=== PATIENT | male | born 1945 | race Caucasian/White ===

== ENCOUNTER 2023-08-03 06:22 | Day surgery (SDC) | payer MEDICARE, OTHER, SELFPAY ==
--- NOTE | 2023-07-19 08:12 | CM ---
Addendum entered by Herlinda Mandujano 07/27/23 10:21:
Spoke again with patient. He has not yet scheduled outpatient PT or watched the online education program; he was encouraged to do both.
Original Note:
Patient is scheduled for an elective R THR on 08/03/23- he is a same day patient. Spoke with patient prior to surgery. Introduced role of Orthopedic Navigator. Patient reports that he lives with his in a two story home. There is one step to
enter and a flight of steps to the second floor. He currently requires assist with putting on his right sock but otherwise functions independently. He has a cane, raised toilet seat with rails, grabber, long handled shoe horn and two rolling walkers
(from his 's prior orthopedic surgeries). He has never had VN services. PCP is [facility] Muse.
Discussed orthopedic program and post surgical plans. Reviewed that he will have VN services initially (medicare.gov website and ratings reviewed) and will then start outpatient PT. Patient selects [facility] (face sheet faxed to [facility] to facilitate
confirmation of benefits) for his home care needs and will go to outpatient PT near his home in [place].
Patient is in agreement with plan and states that his will be home with him.
Patient will complete online education.
Plan: Orthopedic Navigator will remain available to assist with the care of patient and will reassess discharge needs after surgery.
[2023-07-21 07:58] VITALS: BMI 39.1
[2023-07-21 09:09] LABS: Hematocrit 43.5 % (39.0-52.0); Hemoglobin 14.5 g/dL (13.0-18.0); Mean Corp Hgb Conc. 33.3 g/dL (33.0-37.0); Mean Corpuscular Hgb 30.6 pg (27.0-31.0); Mean Corpuscular Volume 91.8 fL (80.0-94.0); Mean Platelet Volume 9.9 fL (7.4-10.4); Platelet Count 199 10^3/uL (130-400); Red Blood Cell Count 4.74 10^6/uL (4.70-6.10); Red Cell Dist. Width 13.3 % (11.5-14.5); White Blood Cell Count 4.9 10^3/uL (4.8-10.8)
[2023-07-21 11:40] LABS: ALT (SGPT) 37 U/L (0-50); AST (SGOT) 40 U/L (17-59); Albumin 4.2 g/dl (3.5-5.0); Alkaline Phosphatase 59 U/L (38-126); Blood Urea Nitrogen 20 mg/dl (9-20); Carbon Dioxide 29 mmol/L (22-30); Chloride 100 mmol/L (98-107); Estimated Creatinine Clearance 109 ml/min; Glucose 95 mg/dl (70-99); Potassium 4.9 mmol/L (3.5-5.1); Sodium 141 mmol/L (135-145); Total Bilirubin 0.7 mg/dl (0.2-1.3); Total Protein 7.1 g/dl (6.3-8.2); eGFR > 60.00
[2023-07-21 14:59] VITALS: BMI 39.1
[2023-07-22 11:15] LABS: Glycohemoglobin (HgbA1c) 5.8 % (4.0-5.6)
[2023-08-03] VITALS (19 sets, daily range): BP systolic 109–142; BP diastolic 54–79; PULSE 89; O2SAT 95
--- NOTE | 2023-08-03 07:05 | W.DS.TRANS ---
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
-
Discharge Instructions:
Sleep Apnea Risk High
Discharge Diagnosis/Procedures R NEMESIO Dr. Gill 08/03/23
Diet As tolerated
Activity With Walker
Driving Restrictions No driving
Bathing Restrictions OK to Shower
Instructions:
Stand-Alone Forms: SDS Total Hip and Knee D/C
Changes to Home Medications: Yes
Discharge Medications:
DC Medications w/original date entered in [employer]
pravastatin 20 mg tablet 20 mg PO QPM 11/13/20
multivitamin 1 ea PO DAILY 11/20/20
allopurinol 100 mg tablet 100 mg PO DAILY 07/19/23
metoprolol succinate 25 mg tablet,extended release 24 hr 25 mg PO DAILY 07/19/23
cefadroxil 500 mg capsule 500 mg PO BID infection prevention #14 caps 07/21/23
dexamethasone 4 mg tablet 4 mg PO BID inflammation #6 tabs 07/21/23
famotidine 20 mg tablet 20 mg PO HS GI prophylaxis #30 tabs 07/21/23
gabapentin 300 mg capsule 300 mg PO HS sleep/pain #10 caps 07/21/23
mupirocin 2 % topical ointment 1 applic topical BID infection prevention #1 tube 07/21/23
ondansetron 4 mg disintegrating tablet 4 mg PO Q6H PRN n/v #20 tabs 07/21/23
oxycodone 5 mg tablet 5 - 10 mg PO Q6HPRN PRN 1 tab moderate-2 tabs severe pain #30 tabs 07/21/23
tamsulosin 0.4 mg capsule (Flomax) 0.4 mg PO HS #7 caps 07/21/23
Saccharomyces boulardii 250 mg capsule (Florastor) 250 mg PO BID #1 cap 08/03/23
acetaminophen 650 mg tablet,extended release 1,300 mg PO TID #0 tabs 08/03/23
apixaban 5 mg tablet (Eliquis) 2.5 mg PO BID dvt prophylaxis #0 tabs 08/03/23
docusate sodium 100 mg capsule (Colace) 100 mg PO BID stool softner #1 cap 08/03/23
magnesium hydroxide 400 mg/5 mL oral suspension (Milk of Magnesia) 30 ml PO HS PRN Constipation #1 mL 08/03/23
sennosides 8.6 mg tablet (Senokot) 17.2 mg PO BID laxative #2 tabs 08/03/23
Home Medication Changes
cefadroxil 500 mg capsule 500 mg PO BID infection prevention #14 caps 07/21/23
dexamethasone 4 mg tablet 4 mg PO BID inflammation #6 tabs 07/21/23
famotidine 20 mg tablet 20 mg PO HS GI prophylaxis #30 tabs 07/21/23
gabapentin 300 mg capsule 300 mg PO HS sleep/pain #10 caps 07/21/23
mupirocin 2 % topical ointment 1 applic topical BID infection prevention #1 tube 07/21/23
ondansetron 4 mg disintegrating tablet 4 mg PO Q6H PRN n/v #20 tabs 07/21/23
oxycodone 5 mg tablet 5 - 10 mg PO Q6HPRN PRN 1 tab moderate-2 tabs severe pain #30 tabs 07/21/23
tamsulosin 0.4 mg capsule (Flomax) 0.4 mg PO HS #7 caps 07/21/23
Saccharomyces boulardii 250 mg capsule (Florastor) 250 mg PO BID #1 cap 08/03/23
acetaminophen 650 mg tablet,extended release 1,300 mg PO TID #0 tabs 08/03/23
apixaban 5 mg tablet (Eliquis) 2.5 mg PO BID dvt prophylaxis #0 tabs 08/03/23
Pending Results: No
[2023-08-03] MEDS: CELEBREX 200 MG PO (07:29)
[2023-08-03] MEDS: TYLENOL 650 MG PO (07:29)
[2023-08-03] MEDS: NORMOSOL-R 1000 IV (07:35)
[2023-08-03] MEDS: ROXICODONE 5 MG PO (12:01)
--- NOTE | 2023-08-03 12:01 | CM ---
Patient had planned R THR today. Met with patient and his at bedside to review discharge plans. Patient will be returning home today with services through [facility]. On Tuesday, 08/07, [facility]. Reviewed MD follow
up in two weeks and patient is aware of need to schedule appointment.
Patient has his rolling walker here with him.
PT and VN were kept updated as to progress and discharge plans.
[2023-08-03] MEDS: ANCEF 5 IV (12:15)
[2023-08-03] MEDS: FLOMAX 0.400000000000000022 MG PO ×2 (14:01→16:30)
[2023-08-03] MEDS: ProAmatine 5 MG PO ×2 (14:05→17:06)
[2023-08-03] MEDS: LASIX 5 MG IV ×2 (14:05→16:35)
--- NOTE | 2023-08-03 19:27 | PTCARENOTE ---
Pt cooperative and engaged with and Nsg staff. Performed well with PT and all ambulation to the bathroom. Pt tolerating PO food and fluids. Nsg in communication with Mariah Alvarez and Herlinda Mandujano throughout pt's stay. Pt's pain well controlled
throughout his post-op course. Pt medicated as per orders see JUL. Per Dr. Gill pt able to go without voiding and is to return to ER if no void by midnight. Pt and Pt's (Malou) spoke with Nsg, and with Herlinda Mandujano. Pt will not be able to
receive PT/Nsg until tomorrow 0800. Pt has 1 step in to house and will stay on first floor tonight. Both pt and comfortable with this plan, Dr. Gill approved this plan of discharge. Pt was able to void prior to D/C, large amount clear yellow
urine. Assisted pt and to private vehicle. Pt tolerated well.
== END 2023-08-03 17:30 | disposition home or self-care (01) ==
LOC: SDS 06:22
PROVIDERS: ATTENDING PHYSICIAN Orthopaedic Surgery; FAMILY PHYSICIAN Family Medicine; OTHER PHYSICIAN Internal Medicine Cardiovascular Disease; OTHER PHYSICIAN Physician Assistant Medical
DX: M16.11 Unilateral primary osteoarthritis, right hip (principal)
CPT/HCPCS: 27130; 36415; 73502; 80053; 83036; 85027; 87070; 97116; 97161; C1776

== ENCOUNTER → 2023-12-14 10:07 | Outpatient (REF) | payer MEDICARE, OTHER, SELFPAY | LOC: RCS 10:07 | PROVIDERS: ATTENDING PHYSICIAN Internal Medicine Cardiovascular Disease; FAMILY PHYSICIAN Family Medicine | DX: I48.92 Unspecified atrial flutter (principal) | CPT/HCPCS: 93306 ==